=== PATIENT | male | born 1980 | race African-American/Black ===

== ENCOUNTER 2017-08-14 06:56 | Outpatient (CLI) | payer BC ==
--- NOTE | 2017-08-14 09:00 | ULT ---
SONOGRAM ABDOMEN COMPLETE: Date: 08/14/17 HISTORY: Upper abdomen pain. FINDINGS: At the gallbladder fossa, echogenic foci showed dense posterior shadowing. Favored to represent a gal lbladder contracted around multiple stones. Wall is measured at 0.8 cm, although it is incompletely d istended. No pericholecystic fluid. Common duct is 0.7 cm, upper limits of normal. Liver is unremarka ble. No free fluid. Spleen, kidneys, and visualized portions of the abdominal aorta, IVC, and pancrea s have a normal appearance. IMPRESSION: Cholelithiasis. Gallbladder decompressed. Common duct upper limits of normal. Clinical correlation re garding other signs and symptoms of central biliary obstruction is required. Radionuclide HIDA scan c ould be helpful to evaluate for biliary patency if needed. POS: TPC
== END 2017-08-14 06:57 | disposition home or self-care (01) ==
LOC: SCSULT 06:56
PROVIDERS: ATTEND Family Medicine
DX: K80.20 Calculus of gallbladder without cholecystitis without obstruction (principal); K82.8 Other specified diseases of gallbladder
CPT/HCPCS: 76700

== ENCOUNTER 2018-09-02 21:39 | Inpatient (IN) | payer BC ==
[2018-09-02 23:23] LABS: #Monocytes 0.7 thou/uL (0.11-0.59); #Neutrophils 8.1 thou/uL (1.40-6.50); %Basophils 0.1 % (0.0-1.0); %Eosinophils 0.2 % (0.0-10.0); %Lymphocytes 10.2 % (21.0-51.0); %Monocytes 7.3 % (0.0-10.0); %Neutrophils 82.2 % (42.0-75.0); Hemoglobin 17.1 g/dL (14.0-18.0); Mean Corpuscular HGB CONC 32.4 g/dL (32.0-36.0); Mean Corpuscular Hemoglobin 31.4 pg (27.0-31.0); Mean Platelet Volume 8.5 fL (7.4-10.4); Platelet Count 264 thou/uL (130-400); RBC Distribution Width 12.5 % (11.5-14.5); Red Blood Cell (RBC) Count 5.44 mill/uL (4.70-6.10); White Blood Cell (WBC) Count 9.9 thou/uL (4.8-10.8)
[2018-09-02 23:34] LABS: ALT (SGPT) 479 U/L (8-55); AST (SGOT) 212 U/L (5-34); Albumin 3.9 g/dL (3.5-5.0); Alkaline Phosphatase 216 U/L (40-150); Anion Gap 14 mmol/L (10-20); BUN (Urea Nitrogen) 16 mg/dL (8.9-20.6); Bilirubin, Total 5.1 mg/dL (0.2-1.2); Calc. Creatinine Clearance 0 mL/min (70-130); Calcium 9.9 mg/dL (7.8-10.44); Carbon Dioxide 24 mmol/L (22-29); Chloride 99 mmol/L (98-107); Estimated GFR-MDRD 76; Globulin 4.8 g/dL (2.4-3.5); Glucose 125 mg/dL (70-105); Potassium 3.4 mmol/L (3.5-5.1); Protein, Total 8.7 g/dL (6.0-8.3); Sodium 134 mmol/L (136-145)
[2018-09-02 23:49] LABS: Lipase 2321 U/L (8-78)
[2018-09-03] MEDS ORDERED: Ondansetron PF 4 MG/2 ML Vial ONE (00:19)
[2018-09-03] MEDS ORDERED: Morphine 4 MG/ML VIAL ONE (00:19)
[2018-09-03] MEDS ORDERED: Ondansetron PF 4 MG/2 ML Vial IVP PRN (02:30)
[2018-09-03] MEDS ORDERED: Ondansetron ODT 4 MG TAB PO PRN (02:30)
[2018-09-03] MEDS ORDERED: Morphine 2 MG/ML SYRINGE SLOW IVP PRN (02:32)
[2018-09-03 03:51] LABS: Hemoglobin 15.3 g/dL (14.0-18.0); Lymphocytes 8 % (21-51); MDiff Complete? YES; Mean Corpuscular HGB CONC 32.9 g/dL (32.0-36.0); Mean Corpuscular Hemoglobin 32.3 pg (27.0-31.0); Mean Corpuscular Volume 98.2 fL (78.0-98.0); Mean Platelet Volume 8.1 fL (7.4-10.4); Monocytes 6 % (0-10); Neutrophil 86 % (42-75); Platelet Count 255 thou/uL (130-400); Platelet Morphology Comment Appears Adequate; RBC Distribution Width 12.5 % (11.5-14.5); Red Blood Cell (RBC) Count 4.73 mill/uL (4.70-6.10)
[2018-09-03 03:54] LABS: ALT (SGPT) 416 U/L (8-55); AST (SGOT) 164 U/L (5-34); Albumin 3.6 g/dL (3.5-5.0); Alkaline Phosphatase 193 U/L (40-150); Anion Gap 15 mmol/L (10-20); BUN (Urea Nitrogen) 17 mg/dL (8.9-20.6); Bilirubin, Total 2.6 mg/dL (0.2-1.2); Calc. Creatinine Clearance 0 mL/min (70-130); Calcium 9.5 mg/dL (7.8-10.44); Carbon Dioxide 25 mmol/L (22-29); Chloride 101 mmol/L (98-107); Estimated GFR-MDRD 85; Globulin 4.3 g/dL (2.4-3.5); Glucose 108 mg/dL (70-105); Potassium 3.5 mmol/L (3.5-5.1); Protein, Total 7.9 g/dL (6.0-8.3); Sodium 137 mmol/L (136-145)
--- NOTE | 2018-09-03 04:33 | HP ---
CHIEF COMPLAINT: Abdominal pain. HISTORY OF PRESENT ILLNESS: The patient is a 38-year-old male who reports a 1- week history of right upper quadrant abdominal pain which he describes as generally crampy and dull. When asked if it is worse with food, he says he really has not been eating much because he has been too afraid to. Reports he has had normal bowel habits with normal character and color of his stool. He has noted that his urine has become dark. He also reports some chills and generalized sweats. He started having some vomiting on 09/02/2018, but it was primarily just liquids. REVIEW OF SYSTEMS: All other systems reviewed. All pertinent positives and negatives are noted in the history of present illness. PAST MEDICAL HISTORY: Notable for hypertension. PAST SURGICAL HISTORY: None. FAMILY HISTORY: Mother, hypertension. Father, hypertension. SOCIAL HISTORY: The patient is a nonsmoker. Occasional alcohol consumer. Denies drugs. He is single. He is full code and his significant other would be his surrogate decision maker should that become necessary. ALLERGIES: NONE. CURRENT MEDICATIONS: 1. Amlodipine 10 mg one p.o. daily. 2. Losartan-hydrochlorothiazide 100-25 one p.o. daily. 3. Aldactone 25 mg p.o. daily. PHYSICAL EXAMINATION: VITAL SIGNS: Normal, afebrile. GENERAL APPEARANCE: Obese, age-appropriate male, in no distress. He is awake, slightly somnolent after having received a dose of morphine in the ER. He is generally cooperative. HEENT: PERRL. No OP lesions. NECK: Supple and symmetric. HEART: Regular rate and rhythm without murmurs, gallops, or rubs. LUNGS: Clear to auscultation bilaterally with good chest wall expansion and air exchange. ABDOMEN: Soft, nondistended. He has actually fairly minimal tenderness to palpation in the right upper quadrant with no guarding or rebound. EXTREMITIES: No cyanosis, clubbing, or edema. NEURO: The patient is fully intact with normal cranial nerves and spontaneous movement in all extremities. No deficits. PSYCH: Normal affect and behavior. Slightly somnolent from pain medications. SKIN: Normal turgor. LABORATORY DATA: White count 9.9, hemoglobin 17.1, platelets 264. Sodium 134, potassium 3.4, chloride 99, BUN 16, creatinine is 1.27, glucose 125, total bilirubin is 5.1, AST 212, ALT 479, alkaline phosphatase 216, albumin 3.9, lipase is 2321. Ultrasound of the abdomen presumably shows some choledocholithiasis, although official report is pending and the EHR system is down presently. IMPRESSION AND PLAN: 1. Choledocholithiasis with obstruction. The patient will be admitted to the hospital in observation, started on IV fluids. Give some coverage with antibiotics. Consult GI for possible ERCP with stone retrieval. Keep him n.p.o. in the meantime. 2. Hypertension. We will continue with his usual home medications. Job ID: [id number] [facility]
--- NOTE | 2018-09-03 07:54 | ULT ---
PRELIMINARY REPORT/[facility]/EMERGENCY AFTER HOURS PROCEDURE: EXAM: US Abdomen Limited, Right Upper Quadrant EXAM DATE/TIME: 09/02/2018 11:51 PM CLINICAL HISTORY: 38 years old, male; Nausea and vomiting; Abdominal pain; Epigastric TECHNIQUE: Imaging protocol: Real-time ultrasound of the abdomen with image documentation. Examination was focused on the right upper quadrant. COMPARISON: No relevant prior studies available. FINDINGS: Liver: Hepatic steatosis. Gallbladder: Wall echo shadow complex indicating gallbladder full of gallstones. No gallbladder wall thickening or pericholecystic fluid. Common bile duct: Common bile duct is dilated at 8-9 mm in caliber. Pancreas: Visualized pancreas is unremarkable. Right kidney: Normal. No mass. No hydronephrosis. IMPRESSION: 1. Common bile duct is dilated at 8-[address] in caliber[address] CT scan to evaluate for distal CBD obstruction. 2. Cholelithiasis Thank you for allowing us to participate in the care of your patient. Dictated and Authenticated by: Ector Flores MD 09/03/2018 2:48 AM Central Time ([place] & [place]) FINAL REPORT US Gallbladder RUQ History: Reason For Study Comparison: Abdomen ultrasound August 2017 Findings: Diffuse hepatic steatosis. Extensive cholelithiasis. Mild distention of the common bile vicente t. Impression: Findings and impression are concordant with the preliminary report. Transcribed Date/Time: 09/03/2018 8:31 AM
[2018-09-03 08:53] VITALS: BMI 45.7
[2018-09-03] MEDS ORDERED: Sodium Chloride 0.9% 1,000 ML IV SCH (10:30)
[2018-09-03 10:51] LABS: Bilirubin Large (Negative); Blood, Urine Trace (Negative); Glucose, Urine (Dipstick) 100 mg/dL (Negative); Leukocyte Negative (Negative); Nitrite Negative (Negative); Protein, Urine (Dipstick) 100 mg/dL (Neg-Trace); Urobilinogen > or = 8.0 mg/dL (0.2-1.0)
[2018-09-03 10:58] LABS: Clarity Clear (Clear)
[2018-09-03 11:02] LABS: RBC/HPF 0-3 HPF (0-3)
[2018-09-03 11:04] LABS: Bacteria/HPF None Seen HPF (None Seen); Hyaline Casts/LPF NONE SEEN LPF (0-3 Hyaline); Transitional Epithelial 0-3 HPF (0-3)
[2018-09-03] MEDS ORDERED: Losartan/Hydrochlorothiazide 100 mg/25 mg Tablet PO SCH (14:00)
[2018-09-03] MEDS ORDERED: Amlodipine 10 MG TAB PO SCH (14:00)
[2018-09-03] MEDS ORDERED: Spironolactone 25 MG TAB PO SCH (14:00)
[2018-09-03] MEDS: MEROPENEM 1 GM/50 ML 1 GM in Premix Bag 1 BAG IVPB SCH ×2 (15:06→22:27)
[2018-09-03] MEDS ORDERED: Indomethacin 50 MG SUPP PR ONE (15:15)
[2018-09-03] MEDS ORDERED: Indomethacin 50 MG SUPP ONE (16:54)
[2018-09-03] MEDS ORDERED: Iothalamate Meglumine 60% 50 ML VIAL FS ONE (16:54)
[2018-09-03] MEDS ORDERED: Fentanyl 100 MCG/2 ML VIAL ONE (19:11)
--- NOTE | 2018-09-03 20:46 | RAD ---
EXAM: ERCP HISTORY: Cholelithiasis FINDINGS/IMPRESSION: Limited intraoperative fluoroscopic views from an ERCP were submitted for interp retation. Contrast is seen within the common bile duct, cystic duct, gallbladder, and intrahepatic biliary tree. No obvious filling defects are seen in the biliary tree. Multiple filling defects in th e gallbladder represent gallstones.
[2018-09-03] MEDS ORDERED: HYDROmorphone 2 MG/ML VIAL SLOW IVP PRN (20:52)
[2018-09-03] MEDS ORDERED: Promethazine HCl 25 MG/ML VIAL IM PRN (20:52)
[2018-09-03] MEDS ORDERED: Ondansetron HCl/PF 4 MG/2 ML Vial IVP PRN (20:52)
[2018-09-03] MEDS ORDERED: Promethazine HCl 25 MG/ML VIAL SLOW IVP PRN (20:52)
[2018-09-03] MEDS ORDERED: Meperidine HCl/PF 25 MG/ML VIAL SLOW IVP PRN (20:52)
[2018-09-03] MEDS: Sodium Chloride 0.9% 1,000 ML IV SCH (22:10)
--- NOTE | 2018-09-03 22:58 | CON ---
DATE OF CONSULTATION: 09/03/2018 REASON FOR CONSULTATION: Choledocholithiasis. CONSULTING PHYSICIAN: Jadon Whaley MD HISTORY OF PRESENT ILLNESS: The patient is a 38-year-old male with past medical history of hypertension, presenting with increased complaints of abdominal pain. He states that he was in his usual state of health until approximately 1 week ago when he began having increased midepigastric abdominal pain characterized as a sharp/stabbing type sensation, was constant with waxing/waning severity, nonradiating, and reached a severity of 10/10. This was associated with increased diaphoresis, subjective fevers, nausea, vomiting with nonbloody emesis. He states that the pain was worse with increased physical activity, but could not recall any additional exacerbating factors. He also could not recall any alleviating factors other than pain medications received here in the hospital. During the course of this last week, he maintained minimal oral intake of either solids or liquids, but continued to have the pain with worsening of his pain prior to admission that prompted him to seek healthcare assistance at [facility] ER, where he was noted to have a significantly elevated lipase and imaging consistent with acute pancreatitis. Otherwise, he denies any chills, dysphagia, odynophagia, diarrhea, or constipation. He also denies any episodes of pancreatitis in the past. REVIEW OF SYSTEMS: A 10-category review of systems was obtained with all responses negative except for the pertinent positives as listed in HPI. PAST MEDICAL HISTORY: Hypertension. PAST SURGICAL HISTORY: None. FAMILY HISTORY: Denies any GI malignancies. SOCIAL HISTORY: Denies any tobacco or illicit drug use. He will drink approximately 1-2 drinks every 1 to 2 months. ALLERGIES: NO KNOWN DRUG ALLERGIES. OUTPATIENT MEDICATIONS: Reviewed. PHYSICAL EXAMINATION: VITAL SIGNS: Temperature 97.9, pulse 112, blood pressure 133/64, respiratory rate 20, saturating 94% on room air. GENERAL: The patient is lying in bed, in no acute distress. Alert and oriented x4. HEENT: Normocephalic, atraumatic. NECK: Supple. No JVD or scleral icterus noted. RESPIRATORY: Clear to auscultation bilaterally with no discernible wheezes or rales. CARDIOVASCULAR: Tachycardic rate, but regular rhythm with no discernible murmurs, gallops, or rubs. ABDOMEN: Normoactive bowel sounds. Soft, nondistended. Tenderness to palpation in the midepigastric region only. EXTREMITIES: No cyanosis, clubbing, or edema. LABORATORY DATA: CBC with a white blood cell count of 12, hemoglobin 15.3, hematocrit 46.5, glucose 255. Chemistry with a sodium of 137, potassium 3.5, chloride 101, CO2 of 25, BUN 17, creatinine 1.15, glucose 108, AST 164, ALT 416, alkaline phosphatase 193, total bilirubin 2.6, lipase 2321. IMAGING DATA: Right upper quadrant ultrasound obtained on 09/02/2017, showed diffuse hepatic steatosis along with a gallbladder with cholelithiasis, but no evidence of thickening or cholecystic fluid. His common bile duct was dilated to approximately 8-9 mm in size, but no discernible filling defect or stone seen. ASSESSMENT AND PLAN: The patient is a 38-year-old male with past medical history of hypertension, presenting with acute pancreatitis with the possibility of gallstone pancreatitis. Gallstone pancreatitis. The patient is presenting with a 1-week history of increased midepigastric pain characterized as a sharp/stabbing type sensation and associated with diaphoresis, fever, nausea, and vomiting. Upon admission, he was noted to have significantly elevated LFTs in an obstructive-type pattern in addition to an elevated lipase concerning for gallstone pancreatitis. Right upper quadrant ultrasound shows dilation of the common bile duct 8 to 9 mm, again further lending credence towards the diagnosis of gallstone pancreatitis. With the ALT greater than 150 on this admission, the positive predictive value for gallstone pancreatitis is higher than 90%. RECOMMENDATIONS: 1. Would continue patient on n.p.o. status post for the pancreatitis and in anticipation of possible ERCP. 2. We will plan for ERCP later on tonight for removal of the offending stone within the common bile duct and to alleviate any further exacerbation of pancreatitis. 3. We would increase IV fluid administration to approximately 200 mL/h for the next 6-8 hours, then decrease to 150 mL/h for the next 16 hours. 4. Pain control per primary team. 5. We will consider advancing the patient's diet in the next 24 hours if able to tolerate the ERCP later on tonight well. 6. Would obtain a triglyceride level on this patient for possibility of hypertriglyceridemia causing pancreatitis, albeit unlikely. 7. Further recommendations to follow ERCP. Please call with any questions. Job ID: [id number]
--- NOTE | 2018-09-04 02:32 | OP ---
DATE OF PROCEDURE: 09/03/2018 PROCEDURE PERFORMED: ERCP with sphincterotomy and removal of foreign body. INDICATION FOR PROCEDURE: Choledocholithiasis. DESCRIPTION OF PROCEDURE: After the risks and benefits of the procedure were explained to the patient including risks of bleeding, infection, perforation, reactions to anesthesia, aspiration, post ERCP pancreatitis, and/or pain, informed consent was obtained. The patient was then taken to the endoscopy suite, where general anesthesia was administered with endotracheal tube intubation via Anesthesia support. Once the patient was intubated and sedated, he was maneuvered into the prone position in preparation for the ERCP. Once in adequate position, the standard duodenoscope was introduced into the mouth with intubation of the esophagus, stomach, and the proximal small intestines with the findings listed below. An EGD portion of the procedure was examined first, then followed by the ERCP portion. The patient tolerated the procedure well with no immediate perioperative complications. Upon conclusion of the procedure, all equipment was removed from the patient. The patient was transferred to PACU in satisfactory condition. FINDINGS: EGD FINDINGS: Normal-appearing mucosa was seen in the proximal, mid, and distal esophagus, albeit views were limited given the visualization with the duodenoscope. Within the stomach, there were patchy areas of increased mucosal erythema in the gastric fundus, body, and more especially the antrum with no associated erosions, ulcerations, or active/recent bleeding. Upon entry into the duodenal bulb, there were small superficial ulcerations seen within the duodenal bulb, but increased in number in the second portion of the duodenum, and appearing along the fold within the small intestine. There was no evidence of active/recent bleeding or high-risk stigmata of bleeding seen in this region. ERCP FINDINGS: The ampulla was successfully identified within the second portion of the duodenum and was normal in appearance. The ampulla was then successfully cannulated with a 5 mm sphincterotome with a guidewire advanced into the distal common bile duct and intrahepatic tree to stabilize position. Once the guidewire was in adequate position, the sphincterotome was advanced into the distal common bile duct with the installation of contrast to perform cholangiography. Via the cholangiography, there were no filling defects identified, and the common bile duct measured approximately 7 to 8 mm in size. A sphincterotomy was then performed with good hemostasis achieved after this maneuver, then the sphincterotome was exchanged for a 9 to 12 biliary balloon via an exchange technique over the guidewire. Once the balloon was successfully exchanged over the guidewire, it was advanced into the distal common bile duct with successive balloon sweeps then performed at 12 mm with the balloon. A small amount of yellow bile along with multiple small yellow pigmented stone debris were obtained with successive balloon sweeps. The entire common bile duct was then swept clean with an occlusion cholangiogram then performed that did not show any additional filling defects. Upon deflation of the balloon, the common bile duct drained rapidly with no remaining contrast within 20 seconds, at which point, all equipment was removed from the patient. The patient was taken to PACU for recovery. IMPRESSION: Choledocholithiasis with small yellow pigmented stone debris, status post successful extraction via biliary balloon. RECOMMENDATIONS: 1. We will continue to monitor the patient clinically for signs of post ERCP pancreatitis. 2. Would continue to trend LFTs daily for monitoring of response to procedure. 3. Would continue IV fluids and n.p.o. status until tomorrow, then advance diet as tolerated. 4. We will consult General Surgery Service for evaluation of the patient and possible cholecystectomy during this admission. 5. Pain control per primary team. We will continue to follow. Please call with any questions. Job ID: [id number]
[2018-09-04] MEDS: MEROPENEM 1 GM/50 ML 1 GM in Premix Bag 1 BAG IVPB SCH ×3 (04:57→20:47)
[2018-09-04] MEDS: Sodium Chloride 0.9% 1,000 ML IV SCH ×3 (04:57→23:03)
[2018-09-04 08:26] LABS: #Eosinphils 0.1 thou/uL (0.0-0.7); #Lymphocytes 1.8 thou/uL (1.20-3.40); #Monocytes 1.3 thou/uL (0.11-0.59); #Neutrophils 16.7 thou/uL (1.40-6.50); %Basophils 0.1 % (0.0-1.0); %Eosinophils 0.4 % (0.0-10.0); %Monocytes 6.7 % (0.0-10.0); %Neutrophils 83.8 % (42.0-75.0); Hemoglobin 14.7 g/dL (14.0-18.0); Mean Corpuscular HGB CONC 32.3 g/dL (32.0-36.0); Mean Corpuscular Hemoglobin 32.4 pg (27.0-31.0); Mean Platelet Volume 8.6 fL (7.4-10.4); Platelet Count 224 thou/uL (130-400); RBC Distribution Width 12.7 % (11.5-14.5); Red Blood Cell (RBC) Count 4.54 mill/uL (4.70-6.10); White Blood Cell (WBC) Count 19.9 thou/uL (4.8-10.8)
[2018-09-04 08:50] LABS: ALT (SGPT) 269 U/L (8-55); AST (SGOT) 69 U/L (5-34); Albumin 3.3 g/dL (3.5-5.0); Alkaline Phosphatase 159 U/L (40-150); Anion Gap 14 mmol/L (10-20); BUN (Urea Nitrogen) 33 mg/dL (8.9-20.6); Bilirubin, Total 1.5 mg/dL (0.2-1.2); Calc. Creatinine Clearance 152 mL/min (70-130); Calcium 8.9 mg/dL (7.8-10.44); Carbon Dioxide 24 mmol/L (22-29); Chloride 102 mmol/L (98-107); Estimated GFR-MDRD 66; Globulin 4.4 g/dL (2.4-3.5); Glucose 83 mg/dL (70-105); Lipase 121 U/L (8-78); Magnesium 1.9 mg/dL (1.6-2.6); Potassium 3.8 mmol/L (3.5-5.1); Protein, Total 7.7 g/dL (6.0-8.3); Sodium 136 mmol/L (136-145)
[2018-09-04] MEDS: Amlodipine 10 MG TAB PO SCH (08:53)
[2018-09-04] MEDS ORDERED: Spironolactone 25 MG TAB PO SCH (09:00)
[2018-09-04] MEDS ORDERED: Losartan/Hydrochlorothiazide 100 mg/25 mg Tablet PO SCH (09:00)
[2018-09-04] MEDS ORDERED: Fentanyl 100 MCG/2 ML VIAL ONE ×5 (10:14→15:32)
[2018-09-04] MEDS ORDERED: Midazolam HCl 2 mg/2 ml Vial ONE (10:14)
[2018-09-04] MEDS ORDERED: Bupivacaine/Epinephrine 0.25% 30 ML VIAL ONE (10:25)
[2018-09-04] MEDS ORDERED: Famotidine/PF 20 mg/2ml Vial ONE (10:55)
[2018-09-04] MEDS ORDERED: Scopolamine 1.5 mg/72 hour Patch ONE (10:55)
[2018-09-04] MEDS ORDERED: SUGAMMADEX SODIUM 500 MG/5 ML VIAL ONE (11:23)
[2018-09-04] MEDS ORDERED: Ibuprofen 800 MG TAB PO PRN (11:55)
[2018-09-04] MEDS ORDERED: traMADol HCl 50 MG TAB PO PRN (11:55)
[2018-09-04] MEDS ORDERED: Iothalamate Meglumine 60% 50 ML VIAL FS ONE (12:45)
--- NOTE | 2018-09-04 13:32 | RAD ---
XR Cholangiogram in Surgery History: Evaluate cholelithiasis Comparison: Ultrasound prior day Findings: Diffuse stones within the gallbladder. Cystic duct is normal as well as the common bile vicente t. Impression: Diffuse cholelithiasis.
[2018-09-04] MEDS ORDERED: Promethazine HCl 25 MG/ML VIAL ONE (14:08)
--- NOTE | 2018-09-04 14:16 | PDOC.PN ---
- Subjective Encounter Start Date: 09/04/18 Encounter Start Time: 08:30 Patient seen and examined for Abn LFTs. Abd pain improving. s/p ERCP. BM today. No new complaints. No overnight events - Objective Resuscitation Status - Order Detail: 09/03/18 02:30 Resuscitation Status Routine Resuscitation Status: FULL: Full Resuscitation MAR Reviewed: Yes Vital Signs & Weight: Vital Signs (12 hours) Temp Pulse Resp BP BP Pulse Ox 09/04/18 08:53 85 127/77 09/04/18 07:38 97.7 F 85 18 127/77 94 L 09/04/18 03:05 98.8 F 88 16 118/63 97 Weight Weight 346 lb 8 oz I&O: 09/03/18 09/04/18 09/05/18 06:59 06:59 06:59 Intake Total 2190 487.50 Output Total 600 375 Balance 1590 112.50 Result Diagrams: 09/04/18 08:19 09/04/18 08:19 Radiology Reviewed by me: Yes (Abd USG - Cholelithiasis) Phys Exam - Physical Examination Constitutional: NAD Neck: no JVD Respiratory: no wheezing, no rales, no rhonchi, clear to auscultation bilateral Cardiovascular: RRR, no rub no heaves/pulsations Gastrointestinal: soft, non-tender, no distention, positive bowel sounds Musculoskeletal: no edema, pulses present Neurological: non-focal, normal sensation, moves all 4 limbs Psychiatric: normal affect, A&O x 3 Dx/Plan - Plan DVT proph w/SCDs IMPRESSION: Sepsis due to Gallstone pancreatitis/Obstructive jaundice s/p ERCP ATILIO on CKD 2 Morbid obesity BMI 45.7 Choledocolithiasis HTN Abd pain due to #1 - improving PLAN: NPO for possible cholecystectomy today Cont IVF Cone Meropenem - adjust dose based on GFR Hold Losartan/HCTZ and Aldactone AM labs Avoid Nephrotoxic agents Review of Systems - Review of Systems Respiratory: negative: Cough, Dry, Shortness of Breath, Hemoptysis, SOB with Excertion, Pleuritic Pain, Sputum, Wheezing Cardiovascular: negative: chest pain, palpitations, orthopnea, paroxysmal nocturnal dyspnea, edema, light headedness, other - Medications/Allergies Allergies/Adverse Reactions: Allergies Allergy/AdvReac Type Severity Reaction Status Date / Time Sulfa (Sulfonamide Allergy Verified 09/03/18 06:31 Antibiotics) Medications: Current Medications Acetaminophen (Tylenol) 1,000 mg PO Q6HR [facility] Amlodipine Besylate (Norvasc) 10 mg PO DAILY [facility] Last Admin: 09/04/18 08:53 Dose: Not Given Meropenem 1 gm/ Device 50 mls @ 50 mls/hr IVPB Q8HR [facility] Last Admin: 09/04/18 04:57 Dose: 50 mls Sodium Chloride (Normal Saline 0.9%) 1,000 mls @ 150 mls/hr IV .Q6H40M [facility] Last Admin: 09/04/18 04:57 Dose: 1,000 mls Ibuprofen (Motrin) 800 mg PO Q8H PRN PRN Reason: Pain Ondansetron HCl (Zofran Odt) 4 mg PO Q6H PRN PRN Reason: Nausea/Vomiting Ondansetron HCl (Zofran) 4 mg IVP Q6H PRN PRN Reason: Nausea/Vomiting Sodium Chloride (Flush - Normal Saline) 10 ml IVF Q12HR [facility] Last Admin: 09/03/18 22:11 Dose: Not Given Sodium Chloride (Flush - Normal Saline) 10 ml IVF PRN PRN PRN Reason: Saline Flush Tramadol HCl (Ultram) 50 mg PO Q6H PRN PRN Reason: Moderate Pain (4-6) Tramadol HCl (Ultram) 100 mg PO Q6H PRN PRN Reason: Severe Pain (7-10)
[2018-09-04] MEDS ORDERED: hydrALAZINE 20 MG/ML VIAL SLOW IVP PRN (14:22)
[2018-09-04] MEDS ORDERED: cloNIDine 0.1 MG TAB PO PRN (14:22)
[2018-09-04] MEDS ORDERED: Ondansetron HCl/PF 4 MG/2 ML Vial IVP PRN (14:53)
[2018-09-04] MEDS ORDERED: Promethazine HCl 25 MG/ML VIAL SLOW IVP PRN (14:53)
[2018-09-04] MEDS ORDERED: Meperidine HCl/PF 25 MG/ML VIAL SLOW IVP PRN (14:53)
[2018-09-04] MEDS ORDERED: Promethazine HCl 25 MG/ML VIAL IM PRN (14:53)
[2018-09-04] MEDS ORDERED: PROPOFOL 200 MG/20 ML VIAL ONE (16:25)
[2018-09-04] MEDS ORDERED: Ondansetron PF 4 MG/2 ML Vial ONE (16:25)
[2018-09-04] MEDS ORDERED: Dexamethasone 20 MG/5 ML VIAL ONE (16:25)
[2018-09-04] MEDS ORDERED: Lidocaine 1% PF 5 ML VIAL ONE (16:25)
[2018-09-04] MEDS ORDERED: Rocuronium Bromide 10 MG/ML (10ML VIAL) ONE (16:25)
[2018-09-04] MEDS ORDERED: PHENYLEPHRINE-NS 100 MCG/ML 10 ML SYRINGE ONE (16:25)
[2018-09-04] MEDS ORDERED: Ketorolac Tromethamine 30 MG/ML VIAL ONE (16:25)
[2018-09-04] MEDS ORDERED: Succinylcholine Chloride 20 MG/ML 10 ml SYRINGE FS ONE (16:25)
[2018-09-04] MEDS ORDERED: Esmolol 100 MG/10 ML VIAL ONE (16:25)
[2018-09-04] MEDS: Acetaminophen 500 MG TAB PO SCH ×3 (16:38→23:54)
--- NOTE | 2018-09-04 16:38 | OP ---
DATE OF PROCEDURE: 09/04/2018 PREOPERATIVE DIAGNOSES: 1. Acute cholecystitis with cholelithiasis. 2. Choledocholithiasis, status post endoscopic retrograde cholangiopancreatography. POSTOPERATIVE DIAGNOSES: 1. Acute cholecystitis with cholelithiasis. 2. Choledocholithiasis, status post endoscopic retrograde cholangiopancreatography. PROCEDURES PERFORMED: 1. Laparoscopic cholecystectomy. 2. Intraoperative cholangiogram. ANESTHESIA: General endotracheal. ESTIMATED BLOOD LOSS: 50 mL. COUNT: Sponge and instrument counts were verified as correct x2. COMPLICATIONS: None apparent at the time of operation. INDICATIONS FOR OPERATION: A 38-year-old man, admitted with abdominal pain. Clinical radiographic examination was consistent with an acute cholecystitis and cholelithiasis. Additionally, the patient was found with choledocholithiasis and acute pancreatitis. He underwent ERCP with common bile duct stone extraction yesterday. LFTs and serum lipase are normalizing today. He has had no significant abdominal pain. The patient was brought to the operating room for laparoscopic cholecystectomy. Findings are consistent with significantly intrahepatic, bilobulated, and fusiform and completely encased by omental adhesions. DESCRIPTION OF PROCEDURE: Informed consent was obtained from the patient, who was brought to the operating room and placed in supine position. Following general anesthesia, the abdomen was sterilely prepped and draped in usual fashion. The skin below the umbilicus was infiltrated with 0.25% Marcaine with epinephrine. A small curvilinear infraumbilical incision was made using an 11 scalpel. Umbilical stalk grasped with Garcie and elevated. Veress needle was inserted through the incision and placed in the peritoneal cavity through which the abdomen was insufflated with 3 L of CO2 gas. Intraabdominal pressure noted at 2 mmHg. Following abdominal insufflation, Veress needle was removed and a 5 mm trocar introduced using a Visiport under laparoscopy. Laparoscopy confirmed proper placement of the port. No injuries to underlying structures. Additional laparoscopy reveals the right upper quadrant completely encased by omental adhesions. Under direct laparoscopy, a 12 mm epigastric and two 5 mm right lateral subcostal ports were placed after the overlying skin were infiltrated with 0.25% Marcaine with epinephrine. Appropriate incision was made. The patient was placed in reverse Trendelenburg position, rotated to his left. I introduced a [place] dissector with cautery to take down omental adhesions. Prestige grasper introduced through the right lateral subcostal port grasping the fundus of the gallbladder, which was elevated cephalad. Omental adhesions were then taken down from remainder of the gallbladder. Second Prestige grasper introduced through the right medial subcostal port grasping what I thought was the Veronique's pouch, which was retracted laterally. I started to dissect what I thought was the triangle; however, I entered into the lumen of the gallbladder and large amount of small stones egressed. Approximately 2 cm beyond this was another saccule, which itself was also intrahepatic for the most part. Not been sure if this was a choledochal cyst. Vessels bilobulated gallbladder. I decided to perform intraoperative cholangiogram. The cholangiocatheter was introduced through an introducer needle in the right upper quadrant. It was flushed first with saline and then inserted into this lumen and secured with a clamp. This was flushed first with saline and then cholangiography was completed using 10 Conray contrast. I reviewed the cholangiogram with Radiology. We both agreed the saccule below this narrowed cystic lumen is a definitely gallbladder. The common bile duct was well visualized and there was no evidence of obstruction in the common bile duct as the contrast readily was visualized within the small bowel. At this juncture, I placed the second Prestige grasper, grasping this saccule, which was retracted laterally. The cystic duct was then carefully dissected free from surrounding structures and divided between clips. Two clips applied proximally and 1 clip at the junction of the cystic duct and gallbladder. The cystic artery dissected free from surrounding structures and divided between clips in a similar fashion. The gallbladder itself was removed from the liver bed using cautery and delivered of the abdominal cavity using an EndoCatch. Multiple loose stones were fished out using the stone grasping clamp. The operative site was irrigated and inspected for good hemostasis. No bile stains noted. Finding no other pathology, laparoscopy was terminated. Fascia of the epigastric port was closed using 0 Vicryl suture and Endoclosure device on the laparoscopy. The abdomen was desufflated. All ports and instruments removed and accounted. Skin incisions were closed using 4-0 Monocryl suture in subcuticular fashion. Dermabond was applied over incisional closure. The patient tolerated this operation without any apparent complication and returned to recovery room in satisfactory condition. Job ID: [id number]
[2018-09-05] MEDS: Sodium Chloride 0.9% 1,000 ML IV SCH ×2 (05:35→17:00)
[2018-09-05] MEDS: Acetaminophen 500 MG TAB PO SCH ×4 (05:35→23:16)
[2018-09-05] MEDS: MEROPENEM 1 GM/50 ML 1 GM in Premix Bag 1 BAG IVPB SCH ×3 (05:36→22:15)
[2018-09-05 07:40] LABS: #Eosinphils 0.1 thou/uL (0.0-0.7); #Lymphocytes 1.9 thou/uL (1.20-3.40); #Monocytes 1.2 thou/uL (0.11-0.59); #Neutrophils 13.7 thou/uL (1.40-6.50); %Basophils 0.3 % (0.0-1.0); %Eosinophils 0.7 % (0.0-10.0); %Lymphocytes 11.3 % (21.0-51.0); %Monocytes 6.8 % (0.0-10.0); Hemoglobin 13.5 g/dL (14.0-18.0); Mean Corpuscular HGB CONC 32.1 g/dL (32.0-36.0); Mean Corpuscular Hemoglobin 31.8 pg (27.0-31.0); Mean Platelet Volume 8.3 fL (7.4-10.4); Platelet Count 229 thou/uL (130-400); RBC Distribution Width 12.6 % (11.5-14.5); Red Blood Cell (RBC) Count 4.24 mill/uL (4.70-6.10)
[2018-09-05 07:58] LABS: ALT (SGPT) 197 U/L (8-55); AST (SGOT) 58 U/L (5-34); Albumin 3.3 g/dL (3.5-5.0); Alkaline Phosphatase 136 U/L (40-150); Anion Gap 12 mmol/L (10-20); BUN (Urea Nitrogen) 26 mg/dL (8.9-20.6); Bilirubin, Total 1.1 mg/dL (0.2-1.2); Calc. Creatinine Clearance 190 mL/min (70-130); Calcium 8.7 mg/dL (7.8-10.44); Carbon Dioxide 22 mmol/L (22-29); Chloride 105 mmol/L (98-107); Estimated GFR-MDRD 85; Globulin 4.3 g/dL (2.4-3.5); Glucose 91 mg/dL (70-105); Protein, Total 7.6 g/dL (6.0-8.3); Sodium 135 mmol/L (136-145)
[2018-09-05] MEDS: Amlodipine 10 MG TAB PO SCH (08:44)
[2018-09-05] MEDS: traMADol HCl 50 MG TAB PO PRN ×2 (08:44→19:41)
[2018-09-05] MEDS ORDERED: Acetaminophen 325 MG TAB PO PRN (10:17)
--- NOTE | 2018-09-05 10:42 | PRG ---
DATE OF SERVICE: 09/05/2018 SUBJECTIVE: A 38-year-old male, admitted 2 days ago with abdominal discomfort. His workup was consistent with obstructive jaundice with gallstone pancreatitis. He underwent ERCP as well as laparoscopic cholecystectomy yesterday. Abdominal pain has significantly improved. He has mild discomfort over the surgical site. No nausea, vomiting, or diarrhea reported. REVIEW OF SYSTEMS: No chest pain, shortness of breath, or focal neurologic deficit. CURRENT MEDICATIONS: Reviewed. The patient is on meropenem along with IV fluids and amlodipine. PHYSICAL EXAMINATION: VITAL SIGNS: Temperature 98.5, pulse rate of 68, respirations of 18, blood pressure of 138/95, O2 saturation 100% on room air. GENERAL: A 38-year-old male, in no apparent distress. LUNGS: Clear to auscultation bilaterally. No wheezing, rales, or rhonchi. HEART: S1, S2 present. Regular rate and rhythm. No rubs or gallops. ABDOMEN: Soft. Mild tenderness over the surgical site. No rebound or guarding. No costovertebral angle tenderness. EXTREMITIES: No edema or calf tenderness. NEUROLOGIC: Grossly nonfocal. LABORATORY FINDINGS: WBC down to 17 from 19.9 with 81% neutrophil, hemoglobin 13.5. Sodium 135, potassium 4, BUN 26, creatinine 1.15, bilirubin down to 1.1 with AST 58, ALT 197. IMPRESSION: 1. Sepsis due to gallstone pancreatitis with obstructive jaundice, status post ERCP and laparoscopic cholecystectomy. 2. Acute kidney injury on chronic kidney disease stage 2, improving. 3. Morbid obesity with a BMI of 45.7. 4. Hypertension. 5. Choledocholithiasis. 6. Abdominal pain secondary to sepsis due to gallstone pancreatitis with obstructive jaundice. 7. Mild hyponatremia. PLAN: Lisinopril/HCTZ and Aldactone are currently on hold due to transient acute kidney injury. We will reduce IV fluids to 75 mL an hour. We will recheck labs in a.m. Continue meropenem for now. Cholangitis appears to be less likely. The patient will be discharged probably later today or in a.m. if stable. We will continue amlodipine as well as p.r.n. antihypertensives. We will start low-dose acetaminophen as needed. Plan was discussed with the patient and the family at the bedside. They stated understanding. Job ID: [id number]
[2018-09-06 05:21] LABS: #Eosinphils 0.1 thou/uL (0.0-0.7); #Lymphocytes 1.7 thou/uL (1.20-3.40); #Monocytes 1.3 thou/uL (0.11-0.59); #Neutrophils 11.7 thou/uL (1.40-6.50); %Lymphocytes 11.7 % (21.0-51.0); %Monocytes 8.5 % (0.0-10.0); %Neutrophils 78.9 % (42.0-75.0); Hemoglobin 12.4 g/dL (14.0-18.0); Mean Corpuscular HGB CONC 33.3 g/dL (32.0-36.0); Mean Corpuscular Hemoglobin 32.9 pg (27.0-31.0); Mean Corpuscular Volume 98.7 fL (78.0-98.0); Mean Platelet Volume 8.7 fL (7.4-10.4); Platelet Count 229 thou/uL (130-400); RBC Distribution Width 12.4 % (11.5-14.5); Red Blood Cell (RBC) Count 3.78 mill/uL (4.70-6.10); White Blood Cell (WBC) Count 14.9 thou/uL (4.8-10.8)
[2018-09-06] MEDS: MEROPENEM 1 GM/50 ML 1 GM in Premix Bag 1 BAG IVPB SCH (05:36)
[2018-09-06] MEDS: Acetaminophen 500 MG TAB PO SCH (05:40)
[2018-09-06 05:48] LABS: ALT (SGPT) 133 U/L (8-55); AST (SGOT) 39 U/L (5-34); Alkaline Phosphatase 115 U/L (40-150); Anion Gap 12 mmol/L (10-20); BUN (Urea Nitrogen) 16 mg/dL (8.9-20.6); Bilirubin, Total 1.1 mg/dL (0.2-1.2); Calc. Creatinine Clearance 260 mL/min (70-130); Calcium 8.7 mg/dL (7.8-10.44); Carbon Dioxide 24 mmol/L (22-29); Chloride 104 mmol/L (98-107); Estimated GFR-MDRD Greater than 90; Glucose 90 mg/dL (70-105); Potassium 3.5 mmol/L (3.5-5.1); Sodium 136 mmol/L (136-145)
[2018-09-06 08:46] VITALS: BP 141/87; TEMP 98.1
--- NOTE | 2018-09-06 09:43 | DIS ---
DATE OF ADMISSION: 09/03/2018 DATE OF DISCHARGE: 09/06/2018 DISCHARGE DISPOSITION: Home. FOLLOWUP: 1. Follow up with Dr. Carroll Pichardo in 1 week. 2. Follow up with General Surgery, Dr. Ziggy Olivas in 2 weeks. The patient was seen and examined on the day of discharge. Denies any new complaints. No nausea, vomiting, or diarrhea reported. INPATIENT SOCIAL SCIENCES INSTRUCTOR: 1. General Surgery, Dr. Olivas. 2. Gastroenterology, Dr. Arguello. DISCHARGE MEDICATIONS: 1. Augmentin 875 mg b.i.d. for next 5 days. 2. Florastor 250 mg daily for 2 weeks. 3. All other home medications were left unchanged. DIAGNOSTIC TESTS: WBC at discharge 14.9, maximum 19.9. Total bilirubin on admission was 5.1, at discharge 1.1. AST on admission 212, at discharge 39. ALT on admission 479, at discharge 133, alkaline phosphatase on admission 216, at discharge 115. Lipase on admission was 2321, repeat after 2 days was 121, yesterday was 29. Urinalysis was negative for bacteria. It showed 11 to 20 wbc's, nitrite negative. INPATIENT PROCEDURES: 1. On 03 September 2018, the patient underwent ERCP that showed choledocholithiasis with small yellow pigmented stone debris, status post successful extraction via biliary balloon. 2. On 04 September 2018, the patient underwent laparoscopic cholecystectomy for acute cholecystitis with cholelithiasis as well as choledocholithiasis, status post ERCP. 3. Gallbladder pathology is pending at this time. DIAGNOSTIC TESTS: Abdominal ultrasound on admission showed common bile duct dilated at 8 to 9 mm in caliber with cholelithiasis. BRIEF HOSPITAL COURSE: The patient is a 38-year-old male with hypertension and morbid obesity, presented to the hospital with abdominal pain. His workup was consistent with gallstone pancreatitis along with obstructive jaundice as well as acute cholecystitis. He was started on broad-spectrum antibiotics. He underwent ERCP followed by laparoscopic cholecystectomy as discussed above. His LFTs have significantly improved. He also had mild acute kidney injury with maximum creatinine of 1.44 two days ago. His creatinine at discharge is 0.84. His appetite is gradually improving. He appears stable for discharge. IV meropenem will be changed to Augmentin. He appears stable for discharge. FINAL DIAGNOSES: 1. Sepsis secondary to gallstone pancreatitis with obstructive jaundice and acute cholecystitis. The patient underwent ERCP as well as laparoscopic cholecystectomy. 2. Acute kidney injury on chronic kidney disease stage 2, resolved. 3. Morbid obesity with a BMI of 45.7. 4. Hypertension. 5. Choledocholithiasis, status post ERCP. 6. Abdominal pain secondary to #1. 7. Mild hyponatremia. 8. Abnormal LFTs secondary to #1. 9. Hypokalemia, replaced. 10. Macrocytosis. The patient has been started on multivitamins. PLAN: Plan of care was discussed with the patient and the family in detail. They stated understanding. The patient was advised to return to emergency room or call PCP if he develops any fever or worsening nausea, vomiting, or abdominal pain. Job ID: [id number]
[2018-09-06] MEDS: Amlodipine 10 MG TAB PO SCH (09:45)
[2018-09-06] MEDS: Sodium Chloride 0.9% 1,000 ML IV SCH (09:46)
--- NOTE | 2018-09-06 10:50 | PRG ---
DATE OF SERVICE: 09/05/2018 SUBJECTIVE: This is a 38-year-old male who comes in for evaluation of abdominal pain, was found to have acute cholecystitis with cholelithiasis, underwent ERCP and then he underwent laparoscopic cholecystectomy. He is doing good. Reports no fever, no shortness of breath. Able to tolerate regular diet. His kidney function and electrolytes are normal. His pain is well controlled. OBJECTIVE: VITAL SIGNS: Temperature 98, pulse 94, O2 sat 100 on room air, and blood pressure 145/76. GENERAL: The patient is alert and oriented. LUNGS: Clear bilaterally. HEART: Regular rate and rhythm. No murmur. ABDOMEN: Soft and distended. Incision is dry and clean. EXTREMITIES: Normal. Neurovascularly intact. ASSESSMENT: Postop laparoscopic cholecystectomy day #1, status post endoscopic retrograde cholangiopancreatography day #2, acute cholecystitis with cholelithiasis. PLAN: Continue with pain control. Continue regular diet . Follow up with Dr. Olivas next week. LFT before following up . Job ID: [id number] [facility]
== END 2018-09-06 12:00 | disposition home or self-care (01) | DRG 853 ==
LOC: ERS 21:39 → ERHOLD 09-03 01:08 → OBSVTOIN 09-03 01:08 → 2SW 09-03 08:25 → T4-A 09-04 14:54 → ONC 09-04 16:05
PROVIDERS: ADMIT Internal Medicine; ATTEND Internal Medicine
PROC: 0FC98ZZ Extirpation of Matter from Common Bile Duct, Via Natural or Artificial Opening Endoscopic (ICD-10-PCS; 2018-09-03)
PROC: BF10YZZ Fluoroscopy of Bile Ducts using Other Contrast (ICD-10-PCS; 2018-09-03)
PROC: 0FT44ZZ Resection of Gallbladder, Percutaneous Endoscopic Approach (ICD-10-PCS; principal; 2018-09-04)
PROC: BF10YZZ Fluoroscopy of Bile Ducts using Other Contrast (ICD-10-PCS; 2018-09-04)
DX: A41.9 Sepsis, unspecified organism (principal); K85.10 Biliary acute pancreatitis without necrosis or infection; N17.9 Acute kidney failure, unspecified; E87.1 Hypo-osmolality and hyponatremia; K80.43 Calculus of bile duct with acute cholecystitis with obstruction; Z68.42 Body mass index [BMI] 45.0-49.9, adult; I12.9 Hypertensive chronic kidney disease with stage 1 through stage 4 chronic kidney disease, or unspecified chronic kidney disease; N18.2 Chronic kidney disease, stage 2 (mild); E66.01 Morbid (severe) obesity due to excess calories; E87.6 Hypokalemia; D75.89 Other specified diseases of blood and blood-forming organs; Z79.899 Other long term (current) drug therapy; Z88.2 Allergy status to sulfonamides
CPT/HCPCS: 36415; 47532; 74330; 76705; 80053; 81003; 81015; 83690; 83735; 85025; 88304; 96361; 96374; 96375; J0131; J1642; J2185; J2250; J2270; J2405; J2550; J3010; J3490; S0028